=== PATIENT | female | born 1950 | race Caucasian/White ===

== ENCOUNTER → 2019-01-11 10:36 | Outpatient (CLI) | payer MEDICARE, OTHER, SELFPAY ==
--- NOTE | 2019-01-25 16:22 | PM.PFT.1 ---
Pulmonary Function Test Referral & Results Date Patient Seen: 01/11/19 Requesting provider: Tj Owens Results: The spirometry demonstrates an FVC of 2.57 L which is 90% of predicted. The FEV1 was measured at 2.06 L which is 95% of predicted. The FEV1/FVC ratio was 80 which is 103% of predicted. Following the administration of bronchodilator there was a 44% improvement in FEF 25-75%. Lung volumes show an SVC of 2.50 L which is 92% of predicted. The diffusing capacity was measured at 17.19 which is 79% of predicted. No hemoglobin value was provided, so no correction for potential anemia could be made, if appropriate. The maximum voluntary ventilation was normal Interpretation: This study demonstrates probably normal spirometry. There is a minimal reduction in diffusing capacity, unless patient is anemic suggesting some element of disease the capillary alveolar level
== END ==
PROVIDERS: PCP Family Medicine; Visit Provider Internal Medicine
DX: R94.2 Abnormal results of pulmonary function studies (principal)
CPT/HCPCS: 94060; 94726; 94729